=== PATIENT | female | born 1975 | race Caucasian/White ===

== ENCOUNTER 2017-04-18 09:43 | Emergency (ER) | payer MEDICAID | END 2017-04-18 10:48 | disposition home or self-care (01) | LOC: E/R 09:43 | DX: J06.9 Acute upper respiratory infection, unspecified (principal) | CPT/HCPCS: 99283 ==

== ENCOUNTER 2017-05-11 02:56 | Emergency (ER) | payer MEDICAID ==
[2017-05-11] MEDS: ACETAMINOPHEN 500 MG TAB PO (06:36)
== END 2017-05-11 07:57 | disposition home or self-care (01) ==
LOC: FTE 02:56
DX: J40 Bronchitis, not specified as acute or chronic (principal)
CPT/HCPCS: 71046; 87400; 99283-25

== ENCOUNTER 2018-01-03 15:26 | Emergency (ER) | payer MEDICAID | END 2018-01-03 17:06 | disposition home or self-care (01) | LOC: FTE 15:26 | DX: T22.131A Burn of first degree of right upper arm, initial encounter (principal); X15.8XXA Contact with other hot household appliances, initial encounter; Y92.9 Unspecified place or not applicable | CPT/HCPCS: 99283; Z7502 ==

== ENCOUNTER 2018-01-05 15:01 | Emergency (ER) | payer MEDICAID | END 2018-01-05 17:17 | disposition home or self-care (01) | LOC: FTE 15:01 | DX: Z48.01 Encounter for change or removal of surgical wound dressing (principal) | CPT/HCPCS: 99281; Z7502 ==

== ENCOUNTER 2018-06-27 09:17 | Emergency (ER) | payer MEDICAID ==
[2018-06-27] MEDS: DEXAMETHASONE 10 MG/ML 1 ML INJ IM (11:19)
[2018-06-27] MEDS: ALBUTEROL 0.083% (NEB) 2.5 MG/3 ML AMP HHN (11:25)
[2018-06-27] MEDS: IPRATROPIUM (NEB) 0.5 MG/2.5 ML AMP HHN (11:25)
== END 2018-06-27 12:23 | disposition home or self-care (01) ==
LOC: FTE 09:17
DX: R05 Cough (principal)
CPT/HCPCS: 71045; 94664; 96372; 99284-25